=== PATIENT | male | born 1990 | race African-American/Black ===

== ENCOUNTER 2018-03-05 22:14 | Emergency (ER) | payer SELFPAY | END 2018-03-05 22:45 | disposition left against medical advice (07) | LOC: ER 22:14 | DX: Z53.21 Procedure and treatment not carried out due to patient leaving prior to being seen by health care provider (principal) ==

== ENCOUNTER 2020-06-03 08:38 | Emergency (ER) | payer OTHER ==
[2020-06-03] MEDS ORDERED: IBUPROFEN 600 MG TABLET PO ONE (12:01)
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
[2020-06-03 12:19] VITALS: BP 124/74
== END 2020-06-03 12:19 | disposition home or self-care (01) ==
LOC: ER 08:38
DX: S29.012A Strain of muscle and tendon of back wall of thorax, initial encounter (principal); V89.2XXA Person injured in unspecified motor-vehicle accident, traffic, initial encounter
CPT/HCPCS: 99282